=== PATIENT | male | born 1995 | race Caucasian/White ===

== ENCOUNTER 2019-04-02 19:43 | Emergency (ER) | payer SELFPAY ==
[2019-04-02 19:45] VITALS: BP 106/62; PULSE 92; RESP 15; TEMP 37.1; O2SAT 100; BMI 25.1
--- NOTE | 2019-04-02 19:58 | ED_ITS ---
Entered by Susan Guerrero, acting as scribe for Apr 02, 2019 19:43 HPI - Nausea/Vomiting/Diarrhea General: Chief complaint: Nausea/Vomiting/Diarrhea Stated complaint: Abdominal Pain Time Seen by Provider: 04/02/19 19:52 Source: patient and family Mode of arrival: EMS Limitations: no limitations History of Present Illness: HPI Narrative: 23 yo Male presents to ED with complaint of nausea, vomiting, and abdominal pain. Pt states that his stomach was hurting but it isn't hurting anymore. Pt's family states that the patient has been hurting for 3 days. Pt's family states that the patient has a stent in his liver. Pt's family states that the patient hasn't been able to get out of bed for 4 days now. Pt's family states that the patient started throwing up today. Pt's family states that the patient had to have another stent placed the last time he got like this. He his mother came and said that for the last 3 days the patient has been in a hotel doing drugs with some of his friends and the patient cannot recall the last 3 days. MD elicited complaint: nausea, vomiting and abdominal pain Onset (ago): day(s) (4) Description of vomiting: bloody Associated nausea: Yes Associated abdominal pain: Yes Location of pain: None Pain consistency: constant Severity: moderate Associated symtoms: Reports fevers/chills, malaise, nausea and weakness Review of Systems General: Reports: 10 or more systems reviewed and unremarkable except in HPI and below Const: Reports: fever and malaise GI: Reports: abdominal pain, nausea, vomiting and vomiting blood; Denies: diarrhea Musc: Reports: muscle weakness PFSH ED PFSH: Statuses (acute, chronic, etc) shown below reflect problem list status as previously entered and may not be historically accurate Medical History (Updated 04/02/19 @ 23:09 by Srinivas Velázquez MD, [facility] [place] Alcoholic liver disease (Acute) Autism (Acute) Bipolar disorder (Acute) Cholangitis (Acute) Cholecystitis (Acute) Gallbladder disease (Acute) Gallstones (Acute) Head injury (Acute) Hepatitis (Acute) Hyperbilirubinemia (Acute) Hypokalemia (Acute) Impetigo (Acute) Intermittent explosive disorder (Acute) MRSA (methicillin resistant Staphylococcus aureus) infection (Acute) Oppositional defiant disorder (Acute) Surgical History (Updated 04/02/19 @ 20:10 by Susan Guerrero) History of cholecystectomy (Acute) Social History Smoking and tobacco status: current every day smoker Physical Exam Const: COMMON NORMALS: no apparent distress, average body habitus, oriented x3, no limitations, healthy appearing, alert and well nourished HENMT: COMMON NORMALS: normocephalic, head/scalp atraumatic, hearing grossly normal bilaterally, external ears normal, EAC's normal, TM's normal bilaterally, external nose normal, nasal mucous membranes and turbinates normal, moist oral mucous membranes, oropharynx normal, dentition normal and gingiva normal HEAD & SCALP: normocephalic and atraumatic NOSE: external nose normal and nasal mucous membranes and turbinates normal EXTERNAL EAR: Yes external ears normal EXTERNAL AUDITORY CANAL: EAC's normal TYMPANIC MEMBRANE: TM's normal bilaterally Eye: COMMON NORMALS: PERRL, EOMs intact bilaterally, conjunctivae normal, no scleral icterus, no papilledema, normal visual galeas by confrontation and fundi normal bilaterally CONJUNCTIVA: Yes conjunctivae normal PUPIL: Yes PERRL DIRECT OPHTHALMOSCOPY: Yes no papilledema and Yes fundi normal bilaterally Neck/C-Spine: COMMON NORMALS: full ROM, supple, no meningeal signs, no JVD and no carotid bruits Chest: COMMONS NORMALS: inspection of chest normal and palpation of chest normal Resp: COMMON NORMALS: normal respiratory effort, no retractions, no use of accessory muscles, clear to auscultation bilaterally and percussion normal AUSCULTATION: clear to auscultation bilaterally PERCUSSION: percussion normal Cardio: COMMON NORMALS: no JVD, regular rate, regular rhythm, S1 normal heart sound, S2 normal heart sound, no gallops, no clicks, no murmurs, no rub and peripheral pulses 2+ throughout RATE: regular rate RHYTHM: regular rhythm HEART SOUNDS: S1 normal and S2 normal PERIPHERAL PULSES: pulses 2+ throughout GI: COMMON NORMALS: normal to inspection, nondistended, normoactive bowel sounds, soft to palpation, non-tender, no hepatosplenomegaly, no masses and no bruits PALPATION: Yes soft and Yes no hepatosplenomegaly : COMMON NORMALS: Yes no CVA tenderness BLADDER/KIDNEY EXAM: Yes no CVA tenderness Back/Pelvis: COMMON NORMALS: no CVA tenderness Extremity: COMMON NORMALS: normal to inspection, full ROM, normal capillary refill, no joint enlargement, no clubbing, cyanosis or edema, no calf tenderness and no pedal edema Neuro: COMMON NORMALS: oriented x3 SENSORIUM/ORIENTATION: Yes alert MENINGEAL SIGNS: Yes no meningeal signs Skin: COMMON NORMALS: no rashes or lesions noted, no wounds, skin turgor normal, no jaundice, no petechiae and no mottling GENERAL SKIN EXAM: no rashes or lesions noted and turgor normal Course Reevaluation(s): Reevaluation #1: Patient still abdominal pain-free. No episodes of vomiting in the ED. Patient complains of a headache. Discussed his labs and imaging findings with him and his family. Liver functions are essentially the same. Bilirubin improved compared to his prior labs. CT scan shows his stent is unchanged. He is however constipated. We will discharge him home on some laxatives and stool softeners. They voiced understanding and are in agreement with the plan. Time: 23:04 Vital Signs: Vital signs: Vital Signs Temperature 98.8 F 04/02/19 19:45 Pulse Rate 92 04/02/19 19:45 Respiratory Rate 15 04/02/19 19:45 Blood Pressure 106/62 04/02/19 19:45 Pulse Oximetry 100 04/02/19 19:45 MDM - Nausea/Vomiting/Diarrhea MDM Narrative: Medical decision making narrative: Patient with vomiting and abdominal pain. He has apparently been on a drug binge. Family was concerned about his liver as he has a liver stent in place. Evaluation of his liver shows his enzymes are relatively unchanged, bilirubin improved. CT scan unremarkable. He is quite constipated. He is discharged home on laxatives. Ammonia is normal. Lab Data: Labs: Lab Results 04/02/19 04/02/19 04/02/19 Range/Units 20:50 20:50 20:53 WBC 10.4 H (4.0-10.0) 10^3/ uL RBC 4.55 (4.1-5.3) 10^6/u L Hgb 14.1 (11.7-16.6) g/dL Hct 43.3 (42.0-52.0) % MCV 95.2 H (80-94) fL MCH 31.0 (28.0-34.0) pg MCHC 32.6 (30.0-36.0) g/dL RDW 12.7 (12.1-15.1) % Plt Count 250 (130-400) 10^3/c mm MPV 9.2 (7.4-10.4) fL Neut % (Auto) 85.8 % Lymph % (Auto) 5.2 % Vilas % (Auto) 6.0 % Eos % (Auto) 2.4 % Baso % (Auto) 0.2 % Neut # (Auto) 8.9 H (1.8-7.7) 10^3/u L Lymph # (Auto) 0.5 L (0.8-4.8) 10^3/u L Vilas # (Auto) 0.6 (0.2-0.9) 10^3/u L Eos # (Auto) 0.3 (0.0-0.8) 10^3/u L Baso # (Auto) 0.0 (0.0-0.1) 10^3/u L Nucleated RBC % (a uto) 0 % Nucleated RBCs # 0.0 /100WBC Sodium (136-145) mmol/L Potassium (3.5-5.1) mmol/L Chloride (98-107) mmol/L Carbon Dioxide (22-29) mmol/L Anion Gap (5-19) BUN (6-20) mg/dL Creatinine (0.7-1.2) mg/dL GFR Calculation (90-130) mL/min Glucose (74-109) mg/dL Calcium (8.6-10.0) mg/Dl Total Bilirubin (0.15-1.2) mg/dL AST (0-40) U/L ALT (0-41) U/L Alkaline Phosphata se (40-130) IU/L Ammonia (16-60) umol/L Total Protein (6.6-8.7) g/dL Albumin (3.5-5.2) g/dL Globulin (1.3-4.6) g/dL Lipase (13-60) U/L Urine Color Yellow (Yellow) Urine Appearance Cloudy (CLEAR) Urine pH 8 H (5-7) Ur Specific Gravit y 1.010 (1.005-1.030) Urine Protein Neg (Negative) Urine Glucose (UA) Norm (Normal) Urine Ketones Negative (Negative) Urine Occult Blood Neg (Negative) Urine Nitrate Negative (Negative) Urine Bilirubin Neg (NEGATIVE) Prot Sulfosalicyli c Acd Negative Urine Urobilinogen 4 H (Negative) mg/dL Ur Leukocyte Felecia ase Negative (Negative) Urine RBC None (0-2) /hpf Urine WBC None (0-5) /hpf Ur Squamous Epith Cells None (0-5) Amorphous Sediment 3+ Urine Bacteria 1+ H (NONE) Urine Opiates Scre en Negative (Negative) ng/mL Ur Barbiturates Sc reen Negative (Negative) ng/mL Ur Phencyclidine S crn Negative (Negative) ng/mL Ur Amphetamines Sc reen Positive H (Negative) ng/mL U Benzodiazepines Scrn Negative (Negative) ng/mL Urine Cocaine Scre en Negative (Negative) ng/mL U Marijuana (THC) Screen Positive H (Negative) ng/mL Influenza Type A A g (Negative) POC Influenza B Ag (Negative) 04/02/19 04/02/19 04/02/19 Range/Units 21:22 21:22 21:50 WBC (4.0-10.0) 10^3/ uL RBC (4.1-5.3) 10^6/u L Hgb (11.7-16.6) g/dL Hct (42.0-52.0) % MCV (80-94) fL MCH (28.0-34.0) pg MCHC (30.0-36.0) g/dL RDW (12.1-15.1) % Plt Count (130-400) 10^3/c mm MPV (7.4-10.4) fL Neut % (Auto) % Lymph % (Auto) % Vilas % (Auto) % Eos % (Auto) % Baso % (Auto) % Neut # (Auto) (1.8-7.7) 10^3/u L Lymph # (Auto) (0.8-4.8) 10^3/u L Vilas # (Auto) (0.2-0.9) 10^3/u L Eos # (Auto) (0.0-0.8) 10^3/u L Baso # (Auto) (0.0-0.1) 10^3/u L Nucleated RBC % (a uto) % Nucleated RBCs # /100WBC Sodium 134 L (136-145) mmol/L Potassium 3.8 (3.5-5.1) mmol/L Chloride 101 (98-107) mmol/L Carbon Dioxide 22 (22-29) mmol/L Anion Gap 14.8 (5-19) BUN 15 (6-20) mg/dL Creatinine 0.7 (0.7-1.2) mg/dL GFR Calculation 138.6 H (90-130) mL/min Glucose 82 (74-109) mg/dL Calcium 9.4 (8.6-10.0) mg/Dl Total Bilirubin 1.8 H (0.15-1.2) mg/dL AST 188 H (0-40) U/L ALT 234 H (0-41) U/L Alkaline Phosphata se 585 H (40-130) IU/L Ammonia 57 (16-60) umol/L Total Protein 7.1 (6.6-8.7) g/dL Albumin 3.8 (3.5-5.2) g/dL Globulin 3.3 (1.3-4.6) g/dL Lipase 23 (13-60) U/L Urine Color (Yellow) Urine Appearance (CLEAR) Urine pH (5-7) Ur Specific Gravit y (1.005-1.030) Urine Protein (Negative) Urine Glucose (UA) (Normal) Urine Ketones (Negative) Urine Occult Blood (Negative) Urine Nitrate (Negative) Urine Bilirubin (NEGATIVE) Prot Sulfosalicyli c Acd Urine Urobilinogen (Negative) mg/dL Ur Leukocyte Felecia ase (Negative) Urine RBC (0-2) /hpf Urine WBC (0-5) /hpf Ur Squamous Epith Cells (0-5) Amorphous Sediment Urine Bacteria (NONE) Urine Opiates Scre en (Negative) ng/mL Ur Barbiturates Sc reen (Negative) ng/mL Ur Phencyclidine S crn (Negative) ng/mL Ur Amphetamines Sc reen (Negative) ng/mL U Benzodiazepines Scrn (Negative) ng/mL Urine Cocaine Scre en (Negative) ng/mL U Marijuana (THC) Screen (Negative) ng/mL Influenza Type A A g Negative (Negative) POC Influenza B Ag Negative (Negative) Imaging Data^: CT Abd/Pel: Radiologist's impression: [facility] [address] [place] [address] CT Scan Report Signed Patient: Vaibhav Olivares RMR#: [id number] : 1995Acct:[id number] Age/Sex: 23 / MADM Date: 04/02/19 Loc: ER Attending Dr: Ordering Physician: Srinivas Velázquez MD, TATE Date of Service: 04/02/19 Procedure(s): CT abdomen pelvis w con* [id number] Accession Number(s): [id number] cc: Srinivas Velázquez MD, TATE~ PROCEDURE INFORMATION: Exam: CT Abdomen And Pelvis With Contrast Exam date and time: 04/02/2019 9:03 PM Age: 23 years old Clinical indication: Abdominal pain; Acute; Prior surgery; Surgery date: 6+ months; Surgery type: Cholecystectomy; Additional info: Nausea, vomiting, abdominal pain, h/o liver disease TECHNIQUE: Imaging protocol: Computed tomography of the abdomen and pelvis with intravenous contrast. Total DLP: 810.33 mGy-cm Radiation optimization: All CT scans at this facility use at least one of these dose optimization techniques: automated exposure control; mA and/or kV adjustment per patient size (includes targeted exams where dose is matched to clinical indication); or iterative reconstruction. Contrast material: OMNI 300; Contrast volume: 95 ml; Contrast route: 20G; COMPARISON: CT abdomen pelvis w con* [id number] 06/18/2018 8:45 AM FINDINGS: Liver: Unremarkable.No mass. Gallbladder and bile ducts: There is a biliary stent. Dilatation of the intrahepatic ducts and common bile duct is identified. Common bile duct measures up to 2.5 cm unchanged since the prior exam. There has been a cholecystectomy. Pancreas: Poorly defined masslike enlargement of the head of the pancreas is overall unchanged in appearance measuring approximately 2.5 by 1.1 cm in size. Spleen: Normal. No splenomegaly. Adrenals: Normal. No mass. Kidneys and ureters: Normal. No hydronephrosis. Stomach and bowel: There is a large amount of stool in the distal colon with distention the rectum concerning for early impaction similar to the prior exam. Appendix: A normal appendix is identified. Intraperitoneal space: Unremarkable. No free air. No significant fluid collection. Vasculature: Unremarkable.No abdominal aortic aneurysm. Lymph nodes: Unremarkable.No enlarged lymph nodes. Bladder: There is nonspecific bladder wall thickening. This may be related to incomplete distention. Reproductive: Unremarkable as visualized. Bones/joints: Moderate degenerative changes in the spine are noted. No acute fracture. Chronic mild anterior wedging deformities at the thoracolumbar junction are unchanged. Soft tissues: Unremarkable. CT/CT abdomen pelvis w con* [id number] IMPRESSION: 1. Unchanged biliary stent with duct dilatation. Unchanged masslike density head of pancreas. 2. There is a large amount of stool in the distal colon with distention the rectum concerning for early impaction similar to the prior exam. Mild rectal wall thickening/edema is noted in slightly increased since the prior exam concerning for progressive inflammation/reactive edema in the rectum. Radiation Dose CTDIVOL = (mGy): DLP = 810.33 (mGy-cm) Dictated By: Seda Arguelles 04/02/192151 Signed By: Seda Arguelles 04/02/192152 Discharge Plan Discharge Patient Disposition: Home, Self-Care Clinical Impression: Multiple substance abuse Constipation Qualifiers: Constipation type: unspecified constipation type Qualified Code(s): K59.00 - Constipation, unspecified Nausea & vomiting Qualifiers: Vomiting type: unspecified Vomiting Intractability: non-intractable Qualified Code(s): R11.2 - Nausea with vomiting, unspecified Condition: Stable Prescriptions: New ondansetron HCl [Zofran] 4 mg tablet 4 mg PO Q8H PRN (Reason: nausea and vomiting) 4 Days Qty: 30 RF: 0 docusate sodium [Colace] 100 mg capsule 100 mg PO BID Qty: 30 RF: 0 lactulose 10 gram/15 mL solution 10 gm PO BID Qty: 473 RF: 0 Discharge Orders: Discharge Order (Routine); Ordered 04/02/19 Ordered By: Srinivas Velázquez Discharge Diet: Advance as tolerated Discharge Activity: Resume usual activity Activity Restrictions/Additional Instructions: Return for any new or worsening symptoms. Take the medications as prescribed Follow-up with your primary care provider within 3 days. Follow-up with your liver specialist as soon as possible. Drink lots of fluids to keep well-hydrated. Increase your fiber intake to help with your bowel movements. Coding Level of Care Code ED Oil Deliverer for Chg Fwd Exam Problem Focused The documentation recorded by the Cesar guan Carmen, accurately reflects the service I personally performed and the decisions made by me, Srinivas Velázquez MD, [facility] [place] Apr 02, 2019 19:43
--- NOTE | 2019-04-02 20:39 | CTR_ITS ---
PROCEDURE INFORMATION: Exam: CT Abdomen And Pelvis With Contrast Exam date and time: 04/02/2019 9:03 PM Age: 23 years old Clinical indication: Abdominal pain; Acute; Prior surgery; Surgery date: 6+ months; Surgery type: Cholecystectomy; Additional info: Nausea, vomiting, abdominal pain, h/o liver disease TECHNIQUE: Imaging protocol: Computed tomography of the abdomen and pelvis with intravenous contrast. Total DLP: 810.33 mGy-cm Radiation optimization: All CT scans at this facility use at least one of these dose optimization techniques: automated exposure control; mA and/or kV adjustment per patient size (includes targeted exams where dose is matched to clinical indication); or iterative reconstruction. Contrast material: OMNI 300; Contrast volume: 95 ml; Contrast route: 20G; COMPARISON: CT abdomen pelvis w con* [id number] 06/18/2018 8:45 AM FINDINGS: Liver: Unremarkable.No mass. Gallbladder and bile ducts: There is a biliary stent. Dilatation of the intrahepatic ducts and common bile duct is identified. Common bile duct measures up to 2.5 cm unchanged since the prior exam. There has been a cholecystectomy. Pancreas: Poorly defined masslike enlargement of the head of the pancreas is overall unchanged in appearance measuring approximately 2.5 by 1.1 cm in size. Spleen: Normal. No splenomegaly. Adrenals: Normal. No mass. Kidneys and ureters: Normal. No hydronephrosis. Stomach and bowel: There is a large amount of stool in the distal colon with distention the rectum concerning for early impaction similar to the prior exam. Appendix: A normal appendix is identified. Intraperitoneal space: Unremarkable. No free air. No significant fluid collection. Vasculature: Unremarkable.No abdominal aortic aneurysm. Lymph nodes: Unremarkable.No enlarged lymph nodes. Bladder: There is nonspecific bladder wall thickening. This may be related to incomplete distention. Reproductive: Unremarkable as visualized. Bones/joints: Moderate degenerative changes in the spine are noted. No acute fracture. Chronic mild anterior wedging deformities at the thoracolumbar junction are unchanged. Soft tissues: Unremarkable. CT/CT abdomen pelvis w con* [id number] IMPRESSION: 1. Unchanged biliary stent with duct dilatation. Unchanged masslike density head of pancreas. 2. There is a large amount of stool in the distal colon with distention the rectum concerning for early impaction similar to the prior exam. Mild rectal wall thickening/edema is noted in slightly increased since the prior exam concerning for progressive inflammation/reactive edema in the rectum. Radiation Dose CTDIVOL = (mGy): DLP = 810.33 (mGy-cm)
[2019-04-02 21:01] LABS: Basophils % 0.2 %; Eosinophils # 0.3 10^3/uL (0.0-0.8); Eosinophils % 2.4 %; Hematocrit 43.3 % (42.0-52.0); Hemoglobin 14.1 g/dL (11.7-16.6); Lymphocytes # 0.5 10^3/uL (0.8-4.8); Lymphocytes % 5.2 %; Mean Corpuscular HGB Conc 32.6 g/dL (30.0-36.0); Mean Corpuscular Volume 95.2 fL (80-94); Mean Platelet Volume 9.2 fL (7.4-10.4); Monocytes # 0.6 10^3/uL (0.2-0.9); Neutrophils # 8.9 10^3/uL (1.8-7.7); Neutrophils % 85.8 %; Nucleated Red Blood Cells % 0 %; Platelet Count 250 10^3/cmm (130-400); Red Blood Count 4.55 10^6/uL (4.1-5.3); Red Cell Distribution Width 12.7 % (12.1-15.1); White Blood Count 10.4 10^3/uL (4.0-10.0)
[2019-04-02 21:25] LABS: Bacteria Urine 1+; Bilirubin Urine Neg (NEGATIVE); Blood Urine Neg (Negative); Glucose Urine UA Norm (Normal); Ketones Urine Negative (Negative); Leukocyte Esterase Urine Negative (Negative); Nitrate Urine Negative (Negative); Protein Urine Neg (Negative); Sulfosalicylic Acid Urine Negative; Urine Appearance Cloudy (CLEAR); Urine Color Yellow (Yellow); Urobilinogen Urine 4 mg/dL (Negative); pH Urine 8 (5-7)
[2019-04-02 21:26] LABS: Add Urine Culture? No; Amorphous Sediment Urine 3+
[2019-04-02 21:37] LABS: Amphetamines Screen Urine Positive (Negative); Barbiturates Screen Urine Negative (Negative); Benzodiazepines Screen Urine Negative (Negative); Cocaine Screen Urine Negative (Negative); Opiate Screen Urine Negative (Negative); PCP Screen Urine Negative (Negative); THC Screen Urine Positive (Negative)
[2019-04-02 21:57] LABS: Alanine Aminotransferase 234 U/L (0-41); Albumin Level 3.8 g/dL (3.5-5.2); Alkaline Phosphatase 585 IU/L (40-130); Anion Gap 14.8 (5-19); Aspartate Amino Transferase 188 U/L (0-40); Blood Urea Nitrogen 15 mg/dL (6-20); Calcium 9.4 mg/Dl (8.6-10.0); Carbon Dioxide 22 mmol/L (22-29); Chloride 101 mmol/L (98-107); Globulin 3.3 g/dL (1.3-4.6); Glomerular Filtration Rate 138.6 mL/min (90-130); Glucose 82 mg/dL (74-109); Lipase 23 U/L (13-60); Potassium 3.8 mmol/L (3.5-5.1); Sodium 134 mmol/L (136-145); Total Bilirubin 1.8 mg/dL (0.15-1.2); Total Protein 7.1 g/dL (6.6-8.7)
[2019-04-02 21:58] LABS: Ammonia 57 umol/L (16-60)
[2019-04-02] MEDS: sodium chloride 0.9% 1,000 ML 999 ML IV (22:37)
[2019-04-02 22:39] LABS: Influenza A by IFA Negative (Negative); Influenza B by IFA Negative (Negative)
[2019-04-02] MEDS: ketorolac 30 mg/mL INJ IVP (23:11)
== END 2019-04-02 23:22 | disposition home or self-care (01) ==
PROVIDERS: Emergency Provider Family Medicine
DX: R11.2 Nausea with vomiting, unspecified (principal); K59.00 Constipation, unspecified; F17.210 Nicotine dependence, cigarettes, uncomplicated; F84.0 Autistic disorder
CPT/HCPCS: 74177; 80053; 80307; 81001; 82140; 83690; 85025; 87804; 96360; 96374; 99283; J1885; J7030; Q9967

== ENCOUNTER 2020-02-18 11:49 | Emergency (ER) | payer MEDICAID, SELFPAY ==
[2020-02-18 11:51] VITALS: BP 117/77; PULSE 115; RESP 18; TEMP 36.8; O2SAT 96; BMI 30.7
--- NOTE | 2020-02-18 12:03 | XR_ITS ---
WS: [id number] Exam: XR chest 1V portable [id number] Date/Time of Exam: 02/18/2020 12:03 PM Reason For Exam: AMS, vomiting Comparison 12/08/2012. Findings: The lungs are clear and fully expanded. Costophrenic angles are sharp. No infiltrates. Bronchovascula r relief appears normal. Cardiac silhouette is unremarkable. Bony elements are intact. XR/XR chest 1V portable [id number] IMPRESSION: Unremarkable chest radiograph.
--- NOTE | 2020-02-18 12:03 | ECG_ITS ---
[facility] Test Date: 2020-02-18 Pat Name: Vaibhav Olivares Department: Room: Gender: Male Mall Manager: : 1995 Requested By: Cherelle Villalpando Order Number: [id number] Tsering MD: Evelyn Juarez M.D. Measurements Intervals Colony Rate: 107 P: -15 VA: 131 QRS: 140 QRSD: 94 T: 128 QT: 335 QTc: 448 Interpretive Statements SINUS TACHYCARDIA LEFT POSTERIOR FASCICULAR BLOCK [QRS AXIS > 109, INFERIOR Q] Possible limb lead reversal No previous ECG available for comparison Electronically Signed On 02-18-2020 13:24:56 TRAFFIC ANALYSIS TECHNICIAN by Evelyn Juarez M.D. [id number]
[2020-02-18 12:30] LABS: ABG PCO2 32.5 mmHg (35-45); ABG PH Result 7.51 (7.35-7.45); Arterial Blood Gas Hematocrit 36.4 % (42-52); Base Excess ABG 3.3 mmol/L (-2.0-2.0); Blood Gas Allen Test Pos; Blood Gas Operator Identificat CAK; Blood Gas Sample Site Brachial, left; Blood Gas Sample Type Arterial; Oxygen Device ROOM AIR; PO2 ABG 76.4 mmHg (80.0-100.0)
[2020-02-18 12:33] LABS: Basophils % 0.6 %; Eosinophils % 0.6 %; Hematocrit 39.9 % (42.0-52.0); Hemoglobin 12.8 g/dL (11.7-16.6); Lymphocytes # 0.7 10^3/uL (0.8-4.8); Lymphocytes % 10.3 %; Mean Corpuscular HGB Conc 32.1 g/dL (30.0-36.0); Mean Corpuscular Hemoglobin 30.1 pg (28.0-34.0); Mean Corpuscular Volume 93.9 fL (80-94); Mean Platelet Volume 9.3 fL (7.4-10.4); Monocytes # 0.4 10^3/uL (0.2-0.9); Monocytes % 5.6 %; Neutrophils # 5.81 10^3/uL (1.8-7.7); Neutrophils % 82.6 %; Nucleated Red Blood Cells % 0 %; Platelet Count 334 10^3/cmm (130-400); Red Blood Count 4.25 10^6/uL (4.1-5.3); Red Cell Distribution Width 12.8 % (12.1-15.1)
[2020-02-18 13:00] LABS: Lactic Sepsis W/Reflex 1.4 mmol/L (0.5-2.2)
[2020-02-18] MEDS: ondansetron 2 mg/ML SDV 2 mL 4 MG IVP (13:06)
[2020-02-18] MEDS: sodium chloride 0.9% 1,000 ML 999 ML IV (13:07)
[2020-02-18 13:10] LABS: Procalcitonin 0.41 ng/mL (0-0.5)
[2020-02-18 13:21] LABS: Alanine Aminotransferase 170 U/L (0-41); Alkaline Phosphatase 382 IU/L (40-130); Anion Gap 17.2 (5-19); Aspartate Amino Transferase 148 U/L (0-40); Blood Urea Nitrogen 8 mg/dL (6-20); Calcium 9.5 mg/dL (8.5-10.5); Carbon Dioxide 24 mmol/L (22-29); Chloride 94 mmol/L (98-107); Creatine Phosphokinase 26 U/L (39-308); Creatinine Clr Calc Pharmacy 169.8965; Globulin 4.9 g/dL (1.3-4.6); Glomerular Filtration Rate 117.8 mL/min (90-130); Glucose 93 mg/dL (65-115); Lipase 8 U/L (13-60); Magnesium 1.7 mg/dL (1.7-2.3); Osmolality Calculated 272 mOsm/kg (285-295); Potassium 3.2 mmol/L (3.5-5.1); Sodium 132 mmol/L (136-145); Total Bilirubin 2.7 mg/dL (0.15-1.2); Total Protein 8.9 g/dL (6.6-8.7)
[2020-02-18 13:25] LABS: Alcohol Level < 10 mg/dL (0-10)
[2020-02-18 13:35] LABS: Ammonia 29 umol/L (16-60)
--- NOTE | 2020-02-18 14:42 | ED_ITS ---
HPI - Abdominal Pain General: Chief Complaint: Abdominal Pain Stated Complaint: LIGHT HEADED, SOB (ABD STENT 1 YR PAST) Time Seen by Provider: 02/18/20 11:52 History of Present Illness: HPI narrative: This patient is a 24-year-old male who presents today with abdominal pain and vomiting. He is unable to tell me how long this has been going on. He tell me I should ask his cousin but I am not sure how to get in touch with his cousin. He told me he just wanted some nausea pills and for me to send him home but I told him I thought he looked like he was pretty sick and that we should keep him and try to help him. He apparently has some sort of stent in his liver or abdomen somewhere. He told me that his sister had signed papers for him to have a bag instead of the stent and so he did not want her to be involved in his medical care at all. I see no scars on his abdomen. MD elicited complaint: abdominal pain Onset (ago): unknown Pain Consistency: constant Location: Diffuse Severity: severe Associated Symptoms: Reports vomiting Review of Systems General: Reports: ROS unobtainable due to medical condition (Patient uncooperative and not wanting to answer questions) GI: Reports: vomiting PFSH ED PFSH: Medical History Alcoholic liver disease Autism Bipolar disorder Cholangitis Cholecystitis Gallbladder disease Gallstones Head injury Hepatitis Hyperbilirubinemia Hypokalemia Impetigo Intermittent explosive disorder MRSA (methicillin resistant Staphylococcus aureus) infection Oppositional defiant disorder Surgical History History of cholecystectomy Social History Smoking and tobacco status: current every day smoker Physical Exam Const: COMMON NORMALS: patient oriented x3 and alert; limitations (Not wanting to answer questions) GENERAL APPEARANCE: cooperative and in distress NUTRITIONAL APPEARANCE: thin OTHER: Jaundiced HENMT: HEAD & SCALP: normal to inspection FACE & SINUS: normal facial exam Eye: GENERAL EYE: appearance normal, both eyes and all related structures SCLERA: scleral abnormal (Icteric) Neck/C-Spine: COMMON NORMALS: supple, no meningeal signs and no JVD Chest: COMMONS NORMALS: normal inspection of the chest Resp: COMMON NORMALS: normal respiratory effort, No use of accessory muscles and clear to auscultation bilaterally AUSCULTATION: clear to auscultation bilaterally Cardio: COMMON NORMALS: no JVD, regular rate, regular rhythm and No murmurs present (Cardio) RATE: regular rate RHYTHM: regular rhythm GI: COMMON NORMALS: Normal to inspection, nondistended, normoactive bowel sounds present, Soft to palpation and non-tender INSPECTION: Yes normal to inspection AUSCULTATION: Yes normoactive bowel sounds PALPATION: Yes Soft to palpation Back/Pelvis: COMMON NORMALS: thoracic and lumbar spine normal to inspection Extremity: COMMON NORMALS: normal to inspection Neuro: COMMON NORMALS: patient oriented x3, moves all extremities, no focal motor deficits and no sensory deficits noted SENSORIUM/ORIENTATION: Yes alert MENINGEAL SIGNS: Yes no meningeal signs Psych: COMMON NORMALS: mental status grossly normal, cooperative and normal affect Skin: COMMON NORMALS: no rashes or lesions noted and turgor normal GENERAL SKIN EXAM: no rashes or lesions noted and turgor normal Course ED course: This patient is icteric and jaundiced and has a history of liver disease. Is not able to provide much history. On review of his old chart it appears that he has some autism and may have some difficulty communicating. He also does have a history of active drug abuse apparently. I had ordered labs CT Zofran and morphine. As he was also getting fluids, potassium, magnesium. He became irate at apparently not getting treatment quickly enough and signed out AMA. I was not aware of this until after he had already left. I contacted his call or contact centre manager on his information sheet and spoke with him. He is the one who brought the patient up. Apparently is the cousin to whom the patient referred. his cousin tells me that his sister is actually is guardian and power of assistant district attorney. He has already spoken to his sister and will let her know that he has left the hospital. I made it clear that the patient was welcome to return to the ER if he wanted. He certainly has potential for serious illness and I would like to see him back for further evaluation and treatment. Reevaluation(s): Reevaluation #1: Patient did return to the ED. See separate chart for documentation. Vital Signs: Vital signs: Vital Signs Temperature 98.2 F 02/18/20 11:51 Pulse Rate 115 H 02/18/20 11:51 Respiratory Rate 18 02/18/20 11:51 Blood Pressure 117/77 02/18/20 11:51 Pulse Oximetry 96 02/18/20 11:51 MDM - Abdominal Pain Lab Data: Labs: Lab Results 02/18/20 02/18/20 02/18/20 Range/Units 12:19 12:20 12:20 WBC 7.0 (4.0-10.0) 10^3/ uL RBC 4.25 (4.1-5.3) 10^6/u L Hgb 12.8 (11.7-16.6) g/dL Hct 39.9 L (42.0-52.0) % MCV 93.9 (80-94) fL MCH 30.1 (28.0-34.0) pg MCHC 32.1 (30.0-36.0) g/dL RDW 12.8 (12.1-15.1) % Plt Count 334 (130-400) 10^3/c mm MPV 9.3 (7.4-10.4) fL Neut % (Auto) 82.6 % Lymph % (Auto) 10.3 % [place] % (Auto) 5.6 % Eos % (Auto) 0.6 % Baso % (Auto) 0.6 % Neut # (Auto) 5.81 (1.8-7.7) 10^3/u L Lymph # (Auto) 0.7 L (0.8-4.8) 10^3/u L [place] # (Auto) 0.4 (0.2-0.9) 10^3/u L Eos # (Auto) 0.0 (0.0-0.8) 10^3/u L Baso # (Auto) 0.0 (0.0-0.1) 10^3/u L Nucleated RBC % (a uto) 0 % Nucleated RBCs # 0.0 /100WBC Specimen Type Arterial Sample Site Brachial, left ABG pH 7.51 H (7.35-7.45) ABG pCO2 32.5 L (35-45) mmHg ABG pO2 76.4 L (80.0-100.0) mmH g ABG HCO3 26.0 (22-26) mmol/L ABG Base Excess 3.3 H (-2.0-2.0) mmol/ L Maikel Test Pos Hematocrit 36.4 L (42-52) % O2 Delivery Device Room air FiO2 21.0 % [employer] ID Cak Sodium 132 L (136-145) mmol/L Potassium 3.2 L (3.5-5.1) mmol/L Chloride 94 L (98-107) mmol/L Carbon Dioxide 24 (22-29) mmol/L Anion Gap 17.2 (5-19) BUN 8 (6-20) mg/dL Creatinine 0.8 (0.7-1.2) mg/dL GFR Calculation 117.8 (90-130) mL/min Glucose 93 (65-115) mg/dL Calculated Osmolal ity 272 L (285-295) mOsm/k g Lactic Acid (0.5-2.2) mmol/L Calcium 9.5 (8.5-10.5) mg/dL Magnesium 1.7 (1.7-2.3) mg/dL Total Bilirubin 2.7 H (0.15-1.2) mg/dL AST 148 H (0-40) U/L ALT 170 H (0-41) U/L Alkaline Phosphata se 382 H (40-130) IU/L Ammonia (16-60) umol/L Creatine Kinase 26 L (39-308) U/L Total Protein 8.9 H (6.6-8.7) g/dL Albumin 4.0 (3.5-5.2) g/dL Globulin 4.9 H (1.3-4.6) g/dL Lipase 8 L (13-60) U/L Procalcitonin 0.41 (0-0.5) ng/mL Ethyl Alcohol < 10 (0-10) mg/dL 02/18/20 02/18/20 Range/Units 12:20 13:08 WBC (4.0-10.0) 10^3/ uL RBC (4.1-5.3) 10^6/u L Hgb (11.7-16.6) g/dL Hct (42.0-52.0) % MCV (80-94) fL MCH (28.0-34.0) pg MCHC (30.0-36.0) g/dL RDW (12.1-15.1) % Plt Count (130-400) 10^3/c mm MPV (7.4-10.4) fL Neut % (Auto) % Lymph % (Auto) % [place] % (Auto) % Eos % (Auto) % Baso % (Auto) % Neut # (Auto) (1.8-7.7) 10^3/u L Lymph # (Auto) (0.8-4.8) 10^3/u L [place] # (Auto) (0.2-0.9) 10^3/u L Eos # (Auto) (0.0-0.8) 10^3/u L Baso # (Auto) (0.0-0.1) 10^3/u L Nucleated RBC % (a uto) % Nucleated RBCs # /100WBC Specimen Type Sample Site ABG pH (7.35-7.45) ABG pCO2 (35-45) mmHg ABG pO2 (80.0-100.0) mmH g ABG HCO3 (22-26) mmol/L ABG Base Excess (-2.0-2.0) mmol/ L Maikel Test Hematocrit (42-52) % O2 Delivery Device FiO2 % [employer] ID Sodium (136-145) mmol/L Potassium (3.5-5.1) mmol/L Chloride (98-107) mmol/L Carbon Dioxide (22-29) mmol/L Anion Gap (5-19) BUN (6-20) mg/dL Creatinine (0.7-1.2) mg/dL GFR Calculation (90-130) mL/min Glucose (65-115) mg/dL Calculated Osmolal ity (285-295) mOsm/k g Lactic Acid 1.4 (0.5-2.2) mmol/L Calcium (8.5-10.5) mg/dL Magnesium (1.7-2.3) mg/dL Total Bilirubin (0.15-1.2) mg/dL AST (0-40) U/L ALT (0-41) U/L Alkaline Phosphata se (40-130) IU/L Ammonia 29 (16-60) umol/L Creatine Kinase (39-308) U/L Total Protein (6.6-8.7) g/dL Albumin (3.5-5.2) g/dL Globulin (1.3-4.6) g/dL Lipase (13-60) U/L Procalcitonin (0-0.5) ng/mL Ethyl Alcohol (0-10) mg/dL Discharge Plan Discharge Patient Disposition: Left Against Medical Advice Prescriptions: No Action lactulose 10 gram/15 mL solution 10 gm PO BID Qty: 473 RF: 0 docusate sodium [Colace] 100 mg capsule 100 mg PO BID Qty: 30 RF: 0 Coding Level of Care Code ED Counterintelligence/Humint Specialist for Chg Fwd Exam Comprehensive
== END 2020-02-18 14:41 | disposition left against medical advice (07) ==
LOC: ER 11:59
PROVIDERS: Emergency Provider Emergency Medicine
DX: R10.9 Unspecified abdominal pain (principal); R11.10 Vomiting, unspecified; Z53.21 Procedure and treatment not carried out due to patient leaving prior to being seen by health care provider; F84.0 Autistic disorder; F17.210 Nicotine dependence, cigarettes, uncomplicated
CPT/HCPCS: 12345; 36600; 71045; 80053; 80307; 82140; 82550; 82803; 83605; 83690; 83735; 84145; 85025; 93005; 96361; 96374; 96375; 99282; 99283; J2405; J7030

== ENCOUNTER 2020-02-18 16:18 | Emergency (ER) | payer MEDICAID, SELFPAY ==
[2020-02-18] VITALS (8 sets, daily range): BP systolic 98–118; BP diastolic 55–66; PULSE 66–105; RESP 16–18; TEMP 37–38.4; O2SAT 96–98; BMI 27.8
--- NOTE | 2020-02-18 16:28 | CTR_ITS ---
PROCEDURE INFORMATION: Exam: CT Abdomen And Pelvis With Contrast Exam date and time: 02/18/2020 5:19 PM Age: 24 years old Clinical indication: Abdominal pain; Generalized; Prior surgery; Surgery date: 6+ months; Surgery type: Gb; Patient HX: C/O abd pain fever vomitting; Additional info: Abdominal pain, fever TECHNIQUE: Imaging protocol: Computed tomography of the abdomen and pelvis with intravenous contrast. Radiation optimization: All CT scans at this facility use at least one of these dose optimization techniques: automated exposure control; mA and/or kV adjustment per patient size (includes targeted exams where dose is matched to clinical indication); or iterative reconstruction. Contrast material: OMNI 300; Contrast volume: 95 ml; Contrast route: INTRAVENOUS (IV); COMPARISON: CT abdomen pelvis w con* [id number] 04/02/2019 9:10 PM RADIATION DOSE METRICS: Total DLP (mGy-cm): 703.06 FINDINGS: Lungs: The lung bases appear unremarkable. Liver: 3.1 cm hypodense low-density lesion in the posterior segment of the right lobe of the liver. Multiple smaller satellite hypodensities are seen in this area, measuring up to 1.3 cm. Intrahepatic biliary dilatation is present. Gallbladder and bile ducts: The gallbladder is surgically absent. There is intrahepatic and extrahepatic biliary dilatation. Common duct measures 25 mm in maximum diameter. There is a biliary stent seen within the dilated common duct. The duodenum contains the distal portion of a biliary stent. There is no acute abnormality of the small bowel. Pancreas: Mild prominence of the pancreatic head, without definite discrete mass identified. No dilatation of the pancreatic duct. The pancreas is unchanged in appearance from the previous study. Spleen: There is mild splenomegaly present. The spleen measures 16 cm in length. No focal splenic lesion demonstrated. Adrenal glands: The adrenal glands appear within normal limits. Kidneys and ureters: The kidneys are normal in morphology. No hydronephrosis. No solid mass. Stomach and bowel: No acute gastric abnormality demonstrated. Large amount of retained stool in the distal rectum, suggesting fecal impaction. The remainder of the colon demonstrates moderate retained stool. Appendix: No evidence of appendicitis. Intraperitoneal space: No pneumoperitoneum. No significant fluid collection. No pneumoperitoneum. No significant fluid collection. Vasculature: The aorta is unremarkable as demonstrated. Lymph nodes: No pathologically enlarged lymph nodes. Urinary bladder: Unremarkable as visualized. Reproductive: Unremarkable as visualized. Bones/joints: No fracture or other acute osseous abnormality. Soft tissues: The soft tissues appear unremarkable. CT/CT abdomen pelvis w con* [id number] IMPRESSION: 1. 3.1 cm hypodense low-density lesion in the posterior segment of the right lobe of the liver. Multiple smaller satellite hypodensities are seen in this area, measuring up to 1.3 cm. Consider hepatic metastases versus hepatic abscesses. This is new when compared to 04/02/2019. 2. Status post cholecystectomy. Severe intrahepatic and extrahepatic biliary dilatation noted, despite the presence of a common duct stent. This is unchanged from the previous study of 04/02/2019. 3. Large amount of retained stool in the distal rectum, suggesting fecal impaction. The volume of rectal stool has increased when compared to the previous study. Radiation Dose CTDIVOL = (mGy): DLP = 703.06 (mGy-cm)
[2020-02-18] MEDS: iohexol 300 mg/mL 100 mL Btl IV (17:26)
[2020-02-18] MEDS: cefTRIAXone 2,000 MG in sodium chloride 0.9% (plus) 50 ML 100 MG IV (17:31)
[2020-02-18] MEDS: morphine 4 mg/mL SDV 1 mL IVP ×2 (17:31→20:25)
[2020-02-18] MEDS: ondansetron 2 mg/ML SDV 2 mL 4 MG IVP (17:31)
[2020-02-18 18:03] LABS: SARS Covid-2 Antigen Negative (Negative)
[2020-02-18 19:29] LABS: Add Urine Microscopic? NO
[2020-02-18] MEDS: piperacillin-tazobactam 3.375 GM in sodium chloride 0.9% (plus) 50 ML IV (19:37)
[2020-02-18 19:44] LABS: Urine Color Dark Yellow (Yellow)
[2020-02-18 19:46] LABS: Bilirubin Urine 1+ (Negative); Blood Urine Neg (Negative); Glucose Urine UA Norm (Normal); Ketones Urine Negative (Negative); Leukocyte Esterase Urine Negative (Negative); Nitrate Urine Negative (Negative); Protein Urine Neg (Negative); Urine Appearance Clear (CLEAR); Urobilinogen Urine 12 mg/dL (Negative); pH Urine 7 (5-7)
[2020-02-18] MEDS: ketorolac 30 mg/mL INJ 15 MG IVP (20:25)
--- NOTE | 2020-02-18 20:37 | W.ED.SYNCOPE ---
HPI - Syncope General: Chief Complaint: Syncope Stated Complaint: SYNCOPAL EPISODE Time Seen by Provider: 02/18/20 16:28 History of Present Illness: HPI narrative: This patient is a 24-year-old male who was here earlier today. He left AGAINST MEDICAL ADVICE after being upset about not getting pain medicine. I called and spoke to his family who take care of him and they were able to bring him back. Apparently passed out in the meanwhile. On his return he is noted to have a temperature of 101.1. He still complaining of abdominal pain and vomiting. See previous chart for history, review of systems and physical as it is unchanged. MD complaint: loss of consciousness [facility] ED PFSH: Medical History Alcoholic liver disease Autism Bipolar disorder Cholangitis Cholecystitis Gallbladder disease Gallstones Head injury Hepatitis Hyperbilirubinemia Hypokalemia Impetigo Intermittent explosive disorder MRSA (methicillin resistant Staphylococcus aureus) infection Oppositional defiant disorder Surgical History History of cholecystectomy Social History Smoking and tobacco status: current every day smoker Course ED course: Patient with a fever. We talked and he agreed to be patient this time. He was given pain medicine. CT scan was done and shows multiple cystic areas in the liver which are concerning for abscess. Metastatic disease is also in the differential but he has no known primaries and given the fever and his history of IV drug use I think abscess is more likely. I spoke with his sister who is his power of commercial real estate attorney. She tells me that he had his stent done at [facility] about a year and a half ago. Fortunately [facility] had a bed tonight and he was accepted by the hospitalist service. I gave him Rocephin and Zosyn in the ED. He also had pain medicine and antiemetics as well as IV fluids. Vital Signs: Vital signs: Vital Signs Temperature 101.1 F H 02/18/20 16:20 Pulse Rate 88 02/18/20 17:26 Respiratory Rate 18 02/18/20 17:26 Blood Pressure 106/66 02/18/20 17:26 Pulse Oximetry 98 02/18/20 17:26 MDM - Syncope Lab Data: Labs: Lab Results 02/18/20 02/18/20 Range/Units 17:20 18:31 Urine Color Dark yellow (Yellow) Urine Appearance Clear (CLEAR) Urine pH 7 (5-7) Ur Specific Gravit y 1.010 (1.005-1.030) Urine Protein Neg (Negative) Urine Glucose (UA) Norm (Normal) Urine Ketones Negative (Negative) Urine Blood Neg (Negative) Urine Nitrate Negative (Negative) Urine Bilirubin 1+ H (Negative) Urine Urobilinogen 12 H (Negative) mg/dL Ur Leukocyte Felecia ase Negative (Negative) SARS-CoV-2 Ag (Rap id) Negative (Negative) Discharge Plan Discharge Prescriptions: No Action lactulose 10 gram/15 mL solution 10 gm PO BID Qty: 473 RF: 0 docusate sodium [Colace] 100 mg capsule 100 mg PO BID Qty: 30 RF: 0 Coding Level of Care Code ED Inspector Tester Sorter for Luxg Ajay
[2020-02-18 21:49] LABS: Amphetamines Screen Urine Positive (Negative); Barbiturates Screen Urine Negative (Negative); Benzodiazepines Screen Urine Negative (Negative); Cocaine Screen Urine Negative (Negative); Opiate Screen Urine Positive (Negative); PCP Screen Urine Negative (Negative); THC Screen Urine Positive (Negative)
[2020-02-19 00:59] VITALS: BP 112/76; PULSE 87; RESP 17; O2SAT 96
[2020-02-19 01:27] VITALS: RESP 16; O2SAT 94
[2020-02-19] MEDS: morphine 4 mg/mL SDV 1 mL IVP (01:27)
[2020-02-19] MEDS: ondansetron 2 mg/ML SDV 2 mL 4 MG IVP (01:28)
--- NOTE | 2020-02-19 17:28 | PC.NURSE ---
LAB CALLED WITH 1 OF 4 BLOOD CULTURE BOTTLES POSITIVE FOR GRAM POSITIVE COCCI IN CLUSTERS.
== END 2020-02-19 01:33 | disposition short-term general hospital (02) ==
PROVIDERS: Emergency Provider Emergency Medicine
DX: R55 Syncope and collapse (principal); F84.0 Autistic disorder; F17.210 Nicotine dependence, cigarettes, uncomplicated
CPT/HCPCS: 12345; 36415; 74177; 80306; 81003; 87040; 87205; 87426; 96365; 96367; 96375; 96376; 99283; 99285; J0696; J1885; J2270; J2405; J2543; Q9967

== ENCOUNTER 2021-07-14 19:08 | Emergency (ER) | payer MEDICAID, SELFPAY ==
[2021-07-14 19:15] VITALS: BP 119/59; PULSE 93; RESP 18; TEMP 37.1; O2SAT 98; BMI 27.4
--- NOTE | 2021-07-14 21:02 | ED_ITS ---
HPI - Extremity Problem General: Chief complaint: Extremity Injury, Lower Stated complaint: Blister to R shaileshkle Time Seen by Provider: 07/14/21 19:52 Source: patient Mode of arrival: ambulatory Limitations: no limitations History of Present Illness: 26-year male states he is noticed to blister to his right heel and its been causing pain over the last 3 to 4 days. He states that he wears boots often without socks or short ankle socks. States it is painful and sharp pain rates it a 5 out of 10 denies any fevers denies any worsening proving factors. Associated symptoms: Deny chest pain, fever(s) or rash Review of Systems Const: Denies: fever(s), chills, body aches or change in appetite Eyes: Denies: blurry vision or eye discomfort ENMT: Denies: throat pain or dental pain Card: Denies: chest pain Resp: Denies: dyspnea GI: Denies: abdominal pain, nausea, vomiting or diarrhea : Denies: dysuria Musc: Denies: neck pain or back pain Skin/Breast: Denies: rash Neuro: Denies: headache(s) Psych: Denies: depression Eduard/Lymph: Denies: easy bruising All/Imm: Denies: urticaria PFSH ED 2 PFSH: Medical History Alcoholic liver disease Autism Bipolar disorder Cholangitis Cholecystitis Gallbladder disease Gallstones Head injury Hepatitis Hyperbilirubinemia Hypokalemia Impetigo Intermittent explosive disorder MRSA (methicillin resistant Staphylococcus aureus) infection Oppositional defiant disorder Surgical History History of cholecystectomy Social History Smoking and tobacco status: current every day smoker Physical Exam Const: COMMON NORMALS: no acute distress, patient oriented x3 and healthy appearing HENMT: COMMON NORMALS: normocephalic and atraumatic HEAD & SCALP: normocephalic and atraumatic Eye: COMMON NORMALS: Equal, round and reactive pupils present and EOMs intact bilaterally PUPIL: Yes Equal, round and reactive pupils present Neck/C-Spine: COMMON NORMALS: full ROM and supple Chest: COMMONS NORMALS: normal inspection of the chest and normal palpation of entire chest wall Resp: COMMON NORMALS: normal respiratory effort, No retractions, No use of accessory muscles and clear to auscultation bilaterally AUSCULTATION: clear to auscultation bilaterally Cardio: COMMON NORMALS: regular rate, regular rhythm and No murmurs present (Cardio) RATE: regular rate RHYTHM: regular rhythm GI: COMMON NORMALS: Normal to inspection, nondistended, normoactive bowel sounds present, Soft to palpation, non-tender and no masses PALPATION: Yes Soft to palpation Extremity: COMMON NORMALS: full ROM NARRATIVE EXTREMITY EXAM: Blister noted to right heel with surrounding erythema and cellulitis Neuro: COMMON NORMALS: patient oriented x3, moves all extremities and no focal motor deficits Psych: COMMON NORMALS: mental status grossly normal, Normal thought process present and cooperative THOUGHT PROCESS: Normal thought process present Skin: COMMON NORMALS: no rashes or lesions noted and no wounds GENERAL SKIN EXAM: no rashes or lesions noted Course Vital Signs: Vital signs: Vital Signs Temperature 98.7 F 07/14/21 19:15 Pulse Rate 93 07/14/21 19:15 Respiratory Rate 18 07/14/21 19:15 Blood Pressure 119/59 07/14/21 19:15 Pulse Oximetry 98 07/14/21 19:15 MDM - Extremity (Nontraumatic) Medical Decision Making Patient presents with a blister to his right heel likely from wearing boots with short socks blister did pop here no signs of abscess he does have some surrounding cellulitis will treat with antibiotics he is stable for discharge and follow-up PCP and return if worsening. Discharge Plan Discharge Patient Disposition: Home Clinical Impression: Blister (nonthermal), right foot, initial encounter, Cellulitis Condition: Stable Prescriptions: No Action sulfamethoxazole-trimethoprim [Bactrim DS] 800-160 mg tablet 1 tab PO BID 10 Days Qty: 20 0RF Discharge Orders: Discharge ED (Routine); Ordered 07/14/21 Ordered By: Ap Vallecillo Discharge Diet: Advance as tolerated Discharge Activity: Resume usual activity Patient Instructions: Cellulitis (ED) Coding Level of Care Code ED Operational Trainer for Sanjeev Moss
== END 2021-07-14 21:22 | disposition home or self-care (01) ==
PROVIDERS: Emergency Provider Emergency Medicine
DX: S90.821A Blister (nonthermal), right foot, initial encounter (principal); X50.9XXA Other and unspecified overexertion or strenuous movements or postures, initial encounter; L03.115 Cellulitis of right lower limb; F17.200 Nicotine dependence, unspecified, uncomplicated
CPT/HCPCS: 99281

== ENCOUNTER 2021-08-15 14:10 | Emergency (ER) | payer MEDICAID, SELFPAY ==
[2021-08-15 14:20] VITALS: BP 113/62; PULSE 62; RESP 16; TEMP 36.4; O2SAT 100; BMI 25.0
--- NOTE | 2021-08-15 14:39 | ED_ITS ---
HPI - Altered Mental Status General: Chief Complaint: Altered Mental Status Stated Complaint: ams/ overheated Time Seen by Provider: 08/15/21 14:25 History of Present Illness: 26-year-old male presents emergency department chief complaint of altered mental status with concerns of heat stroke. Patient was picked up by EMS for further assessment and management patient does not report any other associated symptoms besides generalized confusion per EMS. Patient has no current complaints at this time reports he was walking in which he felt quite fatigued. Associated symptoms: Deny depression Review of Systems General: Reports: 10 or more systems reviewed and unremarkable except in HPI and below Const: Denies: fever(s), chills, fatigue or malaise Eyes: Denies: change in vision or blurry vision Card: Denies: chest pain or palpitations Resp: Denies: dyspnea or productive cough GI: Denies: abdominal pain, nausea or vomiting : Denies: flank pain Musc: Denies: extremity pain or extremity swelling Skin/Breast: Denies: rash or pruritus Neuro: Denies: headache(s) Psych: Denies: anxiety or depression Eduard/Lymph: Denies: easy bleeding All/Imm: Denies: urticaria, throat swelling or facial swelling PFSH ED PFSH: Medical History Alcoholic liver disease Autism Bipolar disorder Cholangitis Cholecystitis Gallbladder disease Gallstones Head injury Hepatitis Hyperbilirubinemia Hypokalemia Impetigo Intermittent explosive disorder MRSA (methicillin resistant Staphylococcus aureus) infection Oppositional defiant disorder Surgical History History of cholecystectomy Social History Smoking and tobacco status: current every day smoker Physical Exam Const: COMMON NORMALS: no acute distress, average body habitus and patient oriented x3 HENMT: COMMON NORMALS: normocephalic, atraumatic and external ears normal HEAD & SCALP: normocephalic and atraumatic EXTERNAL EAR: Yes external ears normal Eye: COMMON NORMALS: Equal, round and reactive pupils present and EOMs intact bilaterally PUPIL: Yes Equal, round and reactive pupils present Neck/C-Spine: COMMON NORMALS: full ROM and no lymphadenopathy Lymph: LYMPHATIC: no lymphadenopathy noted and no lymphedema noted Chest: COMMONS NORMALS: normal inspection of the chest, normal palpation of entire chest wall and normal inspection of the breasts Resp: COMMON NORMALS: normal respiratory effort, No retractions, No use of accessory muscles and clear to auscultation bilaterally AUSCULTATION: clear to auscultation bilaterally Cardio: COMMON NORMALS: regular rate and regular rhythm RATE: regular rate RHYTHM: regular rhythm GI: COMMON NORMALS: Normal to inspection, nondistended, normoactive bowel sounds present, Soft to palpation and non-tender PALPATION: Yes Soft to palpation : COMMON NORMALS: Yes no CVA tenderness BLADDER/KIDNEY EXAM: Yes no CVA tenderness Back/Pelvis: COMMON NORMALS: no CVA tenderness and thoracic and lumbar spine normal to inspection Extremity: COMMON NORMALS: normal to inspection and full ROM Neuro: COMMON NORMALS: patient oriented x3 Psych: COMMON NORMALS: mental status grossly normal, Normal thought process present and cooperative; negative for normal affect (Flat affect appreciated) THOUGHT PROCESS: Normal thought process present Skin: COMMON NORMALS: no rashes or lesions noted GENERAL SKIN EXAM: no rashes or lesions noted Course Vital Signs: Vital signs: Vital Signs Temperature 97.6 F 08/15/21 14:20 Pulse Rate 60 08/15/21 15:58 Respiratory Rate 15 08/15/21 15:58 Blood Pressure 110/74 08/15/21 15:58 Pulse Oximetry 100 08/15/21 15:58 MDM - Altered Mental Status Medical Decision Making Due to the patient sitting condition IV was established basic lab work imaging was obtained IV fluids provided for hydration we will continue to follow Lab work imaging came back revealing mildly elevated liver enzymes with high believe this is due to patient underlying heat related illness patient's status improved with IV fluids. Patient was advised to further follow-up with primary care in 2 to 3 days which was advised to return the interim if any of his symptoms persist or worse. Lab Data : 08/15/21 15:20 08/15/21 15:20 Radiology Impressions Chest X-Ray 08/15/21 14:54 Impression: Negative chest. Laboratory Results WBC 9.4 10^3/uL (4.0-10.0) 08/15/21 15:20 RBC 4.69 10^6/uL (4.1-5.3) 08/15/21 15:20 Hgb 14.5 g/dL (11.7-16.6) 08/15/21 15:20 Hct 42.6 % (42.0-52.0) 08/15/21 15:20 MCV 90.8 fl (80-94) 08/15/21 15:20 MCH 30.9 pg (28.0-34.0) 08/15/21 15:20 MCHC 34.0 g/dL (30.0-36.0) 08/15/21 15:20 RDW 12.9 % (12.1-15.1) 08/15/21 15:20 Plt Count 269 10^3/cmm (130-400) 08/15/21 15:20 MPV 9.9 fL (7.4-10.4) 08/15/21 15:20 Neut % (Auto) 43.3 % 08/15/21 15:20 Lymph % (Auto) 45.7 % 08/15/21 15:20 [place] % (Auto) 9.1 % 08/15/21 15:20 Eos % (Auto) 1.2 % 08/15/21 15:20 Baso % (Auto) 0.5 % 08/15/21 15:20 Neut # (Auto) 4.06 10^3/uL (1.8-7.7) 08/15/21 15:20 Lymph # (Auto) 4.3 10^3/uL (0.8-4.8) 08/15/21 15:20 [place] # (Auto) 0.9 10^3/uL (0.2-0.9) 08/15/21 15:20 Eos # (Auto) 0.1 10^3/uL (0.0-0.8) 08/15/21 15:20 Baso # (Auto) 0.1 10^3/uL (0.0-0.1) 08/15/21 15:20 Nucleated RBC % (auto) 0 % 08/15/21 15:20 Nucleated RBCs # 0.0 /100WBC 08/15/21 15:20 Sodium 139 mmol/L (136-145) 08/15/21 15:20 Potassium 3.1 mmol/L (3.5-5.1) L 08/15/21 15:20 Chloride 103 mmol/L (98-107) 08/15/21 15:20 Carbon Dioxide 19 mmol/L (22-29) L 08/15/21 15:20 Anion Gap 20.1 (5-19) H 08/15/21 15:20 BUN 7 mg/dL (6-20) 08/15/21 15:20 Creatinine 0.7 mg/dL (0.7-1.2) 08/15/21 15:20 GFR Calculation 135.3 mL/min (90-130) H 08/15/21 15:20 Glucose 137 mg/dL (65-115) H 08/15/21 15:20 POC Glucose 84 mg/dL (70-110) 08/15/21 16:01 Calculated Osmolality 288 mOsm/kg (285-295) 08/15/21 15:20 Calcium 8.4 mg/dL (8.5-10.5) L 08/15/21 15:20 Total Bilirubin 0.7 mg/dL (0.15-1.2) 08/15/21 15:20 AST 87 U/L (0-40) H 08/15/21 15:20 ALT 158 U/L (0-41) H 08/15/21 15:20 Alkaline Phosphatase 216 IU/L (40-130) H 08/15/21 15:20 Creatine Kinase 66 U/L (39-308) 08/15/21 15:20 C-Reactive Protein 3.0 mg/L (0.0-4.9) 08/15/21 15:20 Total Protein 7.2 g/dL (6.6-8.7) 08/15/21 15:20 Albumin 4.3 g/dL (3.5-5.2) 08/15/21 15:20 Globulin 2.9 g/dL (1.3-4.6) 08/15/21 15:20 Lipase 20 U/L (13-60) 08/15/21 15:20 Urine Color Yellow (Yellow) 08/15/21: Urine Appearance Clear (CLEAR) 08/15/21: Urine pH 7 (5-7) 08/15/21: Ur Specific Shock 1.010 (1.005-1.030) 08/15/21: Urine Protein Neg (Negative) 08/15/21 Urine Glucose (UA) Norm (Normal) 05/18/22 17:23 Urine Ketones Negative (Negative) 08/15/21 17:23 Urine Blood Neg (Negative) 08/15/21 17: Urine Nitrate Negative (Negative) 08/15/21 17: Urine Bilirubin Neg (Negative) 08/15/21 17:23 Urine Urobilinogen Norm mg/dL (Negative) 08/15/21 17:23 Ur Leukocyte Esterase Negative (Negative) 08/15/21 17:23 Urine Opiates Screen Negative ng/mL (Negative) 08/15/21 17: Ur Barbiturates Screen Negative ng/mL (Negative) 08/15/21 17:23 Ur Phencyclidine Scrn Negative ng/mL (Negative) 08/15/21 17: Ur Amphetamines Screen Negative ng/mL (Negative) 08/15/21 17: U Benzodiazepines Scrn Negative ng/mL (Negative) 08/15/21 17: Urine Cocaine Screen Negative ng/mL (Negative) 08/15/21 17: U Marijuana (THC) Screen Positive ng/mL (Negative) H 08/15/21 17: Ethyl Alcohol < 10 mg/dL (0-10) 08/15/21 15:20 Discharge Plan Discharge Patient Disposition: Home Clinical Impression: Heat exhaustion, Elevated liver enzymes Condition: Stable Prescriptions: No Action No Known Home Medications 0RF Discharge Orders: Discharge ED (Routine); Ordered 08/15/21 Ordered By: Cristhian Bright Referrals: Jens Abdi DO [Staff Physician] - 1-3 days Discharge Diet: Advance as tolerated Discharge Activity: Resume usual activity and Increase activity as tolerated Patient Instructions: Heat Exhaustion - Adult, Opioid Safety Activity Restrictions/Additional Instructions: Follow-up with your primary care doctor in 2 to 3 days, increase your water consumption and please return the interim if any of your symptoms persist or worse. Coding Level of Care Code ED [employer] Research Technician for [employer] Fwd Exam Comprehensive
--- NOTE | 2021-08-15 14:54 | XR_ITS ---
WS: [id number] Portable AP upright chest, 08/15/2021 Clinical Data: syncope , heat related Comparison: Portable chest, 02/18/2020. Findings: No nodules, masses or effusions are seen. The heart is normal. The pulmonary vascularity is not increased. No pneumonia or pneumothorax is seen. XR/XR chest 1V portable [id number] Impression: Negative chest.
[2021-08-15] MEDS: sodium chloride 0.9% 1,000 ML 999 ML IV (15:23)
[2021-08-15 15:30] LABS: Basophils # 0.1 10^3/uL (0.0-0.1); Basophils % 0.5 %; Eosinophils # 0.1 10^3/uL (0.0-0.8); Eosinophils % 1.2 %; Hematocrit 42.6 % (42.0-52.0); Hemoglobin 14.5 g/dL (11.7-16.6); Lymphocytes # 4.3 10^3/uL (0.8-4.8); Lymphocytes % 45.7 %; Mean Corpuscular Hemoglobin 30.9 pg (28.0-34.0); Mean Corpuscular Volume 90.8 fl (80-94); Mean Platelet Volume 9.9 fL (7.4-10.4); Monocytes # 0.9 10^3/uL (0.2-0.9); Monocytes % 9.1 %; Neutrophils # 4.06 10^3/uL (1.8-7.7); Neutrophils % 43.3 %; Nucleated Red Blood Cells % 0 %; Platelet Count 269 10^3/cmm (130-400); Red Blood Count 4.69 10^6/uL (4.1-5.3); Red Cell Distribution Width 12.9 % (12.1-15.1); White Blood Count 9.4 10^3/uL (4.0-10.0)
[2021-08-15 15:58] VITALS: BP 110/74; PULSE 60; RESP 15; O2SAT 100
[2021-08-15 16:04] LABS: Glucose Point of Care 84 mg/dL (70-110)
[2021-08-15 16:10] LABS: Alanine Aminotransferase 158 U/L (0-41); Albumin Level 4.3 g/dL (3.5-5.2); Alkaline Phosphatase 216 IU/L (40-130); Anion Gap 20.1 (5-19); Aspartate Amino Transferase 87 U/L (0-40); Blood Urea Nitrogen 7 mg/dL (6-20); Calcium 8.4 mg/dL (8.5-10.5); Carbon Dioxide 19 mmol/L (22-29); Chloride 103 mmol/L (98-107); Creatine Phosphokinase 66 U/L (39-308); Globulin 2.9 g/dL (1.3-4.6); Glomerular Filtration Rate 135.3 mL/min (90-130); Glucose 137 mg/dL (65-115); Lipase 20 U/L (13-60); Osmolality Calculated 288 mOsm/kg (285-295); Potassium 3.1 mmol/L (3.5-5.1); Sodium 139 mmol/L (136-145); Total Bilirubin 0.7 mg/dL (0.15-1.2); Total Protein 7.2 g/dL (6.6-8.7)
[2021-08-15 16:36] LABS: Alcohol Level < 10 mg/dL (0-10)
[2021-08-15 17:35] LABS: Add Urine Microscopic? NO; Charge for UA Resulting for Rev
[2021-08-15 17:40] LABS: Bilirubin Urine Neg (Negative); Blood Urine Neg (Negative); Glucose Urine UA Norm (Normal); Ketones Urine Negative (Negative); Leukocyte Esterase Urine Negative (Negative); Nitrate Urine Negative (Negative); Protein Urine Neg (Negative); Urine Appearance Clear (CLEAR); Urine Color Yellow (Yellow); Urobilinogen Urine Norm (Negative); pH Urine 7 (5-7)
[2021-08-15 17:49] LABS: Amphetamines Screen Urine Negative (Negative); Barbiturates Screen Urine Negative (Negative); Benzodiazepines Screen Urine Negative (Negative); Cocaine Screen Urine Negative (Negative); Opiate Screen Urine Negative (Negative); PCP Screen Urine Negative (Negative); THC Screen Urine Positive (Negative)
[2021-08-15 19:30] VITALS: BP 123/70; PULSE 81; RESP 16; O2SAT 100
== END 2021-08-15 19:20 | disposition home or self-care (01) ==
PROVIDERS: Emergency Provider Emergency Medicine
DX: T67.5XXA Heat exhaustion, unspecified, initial encounter (principal); F17.200 Nicotine dependence, unspecified, uncomplicated; R74.01 Elevation of levels of liver transaminase levels
CPT/HCPCS: 36416; 71045; 80053; 80306; 80307; 81003; 82550; 82962; 83690; 85025; 86140; 96360; 99284; J7030